=== PATIENT | female | born 1995 | race American Indian/Alaskan Native ===

== ENCOUNTER 2018-11-04 12:36 | Emergency (ER) | payer SELFPAY ==
[2018-11-04 12:50] VITALS: BP 118/78
--- NOTE | 2018-11-04 13:49 | Emergency Department Report ---
ED Dysuria HPI - HPI Chief Complaint: Nausea/Vomiting/Diarrhea Stated Complaint: NAUSEA/STOMACH PAIN Time Seen by Provider: 11/04/18 12:55 Duration: 3 Days Location of Discomfort: Suprapubic Severity: Mild Symptoms: Dysuria: No, Frequency: No, Suprapubic Pain: No, Flank Pain: No, Fever: No, Hematuria: No, Abdominal Pain: No, Previous UTI's: No Other History: Ms. Henry is a 22-year-old female who comes to the emergency room today thinking that she is . She had an episode of nausea this morning and her last menstrual cycle was 11 12 she is concerned she is . She did not take a home test. He has had no active vomiting in the emergency room ED Review of Systems ROS: Stated complaint: NAUSEA/STOMACH PAIN Other details as noted in HPI Comment: All other systems reviewed and negative Constitutional: denies: chills Eyes: denies: eye pain ENT: denies: throat pain Respiratory: denies: cough Cardiovascular: denies: dyspnea on exertion Endocrine: denies: intolerance to cold Gastrointestinal: nausea. denies: abdominal pain, vomiting, diarrhea, constipation, hematemesis, melena Genitourinary: denies: urgency Musculoskeletal: denies: back pain Neurological: denies: weakness Psychiatric: denies: depression Hematological/Lymphatic: denies: easy bleeding ED Past Medical Hx - Past Medical History Previous Medical History?: No - Surgical History Past Surgical History?: No - Family History Family history: no significant - Social History Smoking Status: Never Smoker Substance Use Type: None Dysuria Exam - Exam General: Vital signs noted. No distress. Alert and acting appropriately. Exam: Yes Moist Mucous Membranes, No CVA Tenderness, No Abdominal Tenderness, No Rigidity or Guarding ED Course Vital Signs 11/04/18 12:47 Temperature 98.7 F Pulse Rate 84 Respiratory 16 Rate Blood Pressure 118/78 O2 Sat by Pulse 100 Oximetry ED Medical Decision Making - Medical Decision Making PREG NEG NO VOMITING IN ER REFERRED TO OBGYN Labs 11/04/18 13:40 Urine HCG, Qual Negative - Differential Diagnosis RO PREG Critical care attestation.: If time is entered above; I have spent that time in minutes in the direct care of this critically ill patient, excluding procedure time. ED Disposition Clinical Impression: Well adult exam Disposition: DC-01 TO HOME OR SELFCARE Is pt being admited?: No Does the pt Need Aspirin: No Condition: Stable Additional Instructions: NEG PREG TEST FOLLOW UP OBGYN FOR FEMALE RELATED ISSUES REFERRAL BELOW Referrals: ZARA TADEO MD [Staff Physician] - 3-5 Days Time of Disposition: 14:10
[2018-11-04 14:00] LABS: HCG Qualitative,Urine Negative (Negative)
== END 2018-11-04 14:16 | disposition home or self-care (01) ==
LOC: ED 12:36
DX: O26.891 Other specified pregnancy related conditions, first trimester (principal); Z3A.00 Weeks of gestation of pregnancy not specified; Z00.00 Encounter for general adult medical examination without abnormal findings
CPT/HCPCS: 81025; 99283